=== PATIENT | female | born 1960 | race Caucasian/White ===

== ENCOUNTER 2019-07-12 00:03 | Inpatient (IN) | payer MEDICAID ==
[2019-07-12] MEDS ORDERED: Azithromycin 500 MG VIAL ONE (00:21)
[2019-07-12] MEDS ORDERED: Ondansetron PF 4 MG/2 ML Vial ONE (00:21)
[2019-07-12 00:34] LABS: Hemoglobin 9.7 g/dL (12.0-16.0); Mean Corpuscular HGB CONC 32.5 g/dL (32.0-36.0); Mean Corpuscular Hemoglobin 23.9 pg (27.0-31.0); Mean Corpuscular Volume 73.4 fL (78.0-98.0); Platelet Count 471 thou/uL (130-400); RBC Distribution Width 15.4 % (11.5-14.5); Red Blood Cell (RBC) Count 4.04 mill/uL (4.20-5.40); White Blood Cell (WBC) Count 11.9 thou/uL (4.8-10.8)
[2019-07-12 00:46] LABS: #Lymphocytes 0.3 thou/uL (1.20-3.40); #Monocytes 0.1 thou/uL (0.11-0.59); #Neutrophils 11.4 thou/uL (1.40-6.50); %Basophils 0.3 % (0.0-1.0); %Eosinophils 0.1 % (0.0-10.0); %Lymphocytes 2.8 % (21.0-51.0); %Monocytes 0.4 % (0.0-10.0); %Neutrophils 96.5 % (42.0-75.0); ALT (SGPT) 37 U/L (8-55); AST (SGOT) 16 U/L (5-34); Albumin 3.3 g/dL (3.4-4.8); Alkaline Phosphatase 86 U/L (40-110); Anion Gap 14 mmol/L (10-20); BUN (Urea Nitrogen) 6 mg/dL (9.8-20.1); Bilirubin, Total 0.4 mg/dL (0.2-1.2); Calc. Creatinine Clearance 0 mL/min (70-130); Calcium 8.4 mg/dL (7.8-10.44); Carbon Dioxide 23 mmol/L (23-31); Chloride 99 mmol/L (98-107); Estimated GFR-MDRD 89; Globulin 3.3 g/dL (2.4-3.5); Glucose 182 mg/dL (80-115); MDiff Complete? YES; Microcytosis SLIGHT = 6-15 cells (100X) (0-5/hpf); Platelet Morphology Comment Appears Increased; Potassium 3.8 mmol/L (3.5-5.1); Protein, Total 6.6 g/dL (6.0-8.3); Sodium 132 mmol/L (136-145)
[2019-07-12 01:08] LABS: Base Excess-Venous 0.3 mmol/L (-2.0 to 3.0); Bicarbonate (HCO3v) 25.6 mmol/L (22.0-28.0); CO2 Tension (PvCO2) 43.4 mmHg (40.0-50.0); Calcium, Ionized 1.17 mmol/L (See Comments:); Chloride 99 mmol/L (98-107); Hemoglobin - Calc 10.3 g/dL (12.0-16.0); Potassium 4.2 mmol/L (3.5-5.1); Sodium 134 mmol/L (138-145)
[2019-07-12 01:09] LABS: CKMB 0.5 ng/mL (0-6.6)
[2019-07-12 02:08] LABS: Bilirubin Negative (Negative); Blood, Urine Negative (Negative); Clarity Clear (Clear); Glucose, Urine (Dipstick) Normal (Negative); Leukocyte Negative Leu/uL (Negative); Nitrite Negative (Negative); Protein, Urine (Dipstick) Negative (Neg-Trace); Urobilinogen Normal mg/dL (Less than 2)
[2019-07-12] MEDS ORDERED: Acetaminophen 325 MG TAB PO PRN (03:32)
[2019-07-12] MEDS ORDERED: Bacteriostatic Water 30 ML VIAL FS PRN (03:54)
--- NOTE | 2019-07-12 04:11 | HP ---
CHIEF COMPLAINT: Shortness of breath. HISTORY OF PRESENT ILLNESS: The patient is a very pleasant 59-year-old female, who was recently diagnosed with influenza on 07/05 and was put on azithromycin and Tamiflu, who presents to the hospital with worsening shortness of breath. The patient states that for the past couple of days, she has been very short of breath. Denies any fevers or chills; however, does state that she had has been having a little cough with some sputum production. The patient denies any orthopnea or PND. She denies any lower extremity swelling. The patient is a former smoker, quit date was June 10, 2019. She presented to [facility] today. She underwent a CTA for PE protocol, which was negative for PE; however, she was noted to have walled cavitary mass in the posterior aspect of her left upper chest. PAST MEDICAL HISTORY: The patient has a history of COPD. PAST SURGICAL HISTORY: She has had tubal ligation. SOCIAL HISTORY: She is a former smoker, one pack a day, quit in June. No alcohol use. No drug use. She lives with her family. She is a full code. REVIEW OF SYSTEMS: All negative except for the ones mentioned above in the HPI. ALLERGIES: ALLERGIC TO CODEINE. FAMILY HISTORY: No history of heart disease or strokes. PHYSICAL EXAMINATION: VITAL SIGNS: Temperature of 97.6, respiratory rate 20, 95% on BiPAP, 84 heart rate, blood pressure of 98/69. GENERAL: She is awake, alert, and oriented x3. Does not appear in distress. HEENT: The patient appears cachectic with some temporal wasting. No oral lesions noted. Pupils equal and reactive to light. CV: S1 and S2 present. No murmurs, rubs, or gallops. LUNGS: She has diminished breath sounds all over. No wheezing or rhonchi noted. ABDOMEN: Soft. Bowel sounds are present x2. Mild pain upon palpation all over. EXTREMITIES: No edema. Pedal pulses are present x2. NEUROVASCULAR: No focal deficits noted. SKIN: No cuts, lesions, or bruises noted. LABORATORY RESULTS: As of the following; WBCs of 11.9, hemoglobin of 9.7, hematocrit of 29.7, her platelets of 471. Chemistry; sodium of 134, potassium of 4.2, BUN of 6, creatinine of 0.67. Her troponin was mildly elevated at 0.061. She did have a CTA, which indicated no PE; however, indicated emphysematous changes and there is a persistent abnormal irregular thick walled cavitary mass in the posterior aspect of the left upper lobe, which measures up to 7 cm in size abuts in the hilum. The nonspecific mediastinal lymphadenopathy is also noted. ASSESSMENT AND PLAN: The patient is a very pleasant 59-year-old female, who presents to the hospital with complaints of shortness of breath. 1. Shortness of breath, most likely secondary to possible chronic obstructive pulmonary disease exacerbation. I will start her on some steroids and DuoNeb. pt is on BiPAP. She did have a vbg done, indicated a pH of 7.37 and CO2 of 49. Her BNP was less than 10. She did have an elevated D-dimer. cta negative for PE. However she does have a cavitary mass. Not sure if this is infectious vs malignancy. She is currently on the BiPAP. We will consult Pulmonary and continue to monitor. I will also start her on some broad-spectrum antibiotics. 2. Mild elevated troponins. She did have some mild troponin leak. No significant EKG changes. We will get an echocardiogram. 3. Malnutrition, moderate to severe. The patient states that she has not been really eating very much. She is currently lost some weight. She states that she has some abdominal fullness. Given the fact that she has hilar mass, unclear this is a malignancy versus possible infectious etiology. 4. Deep venous thrombosis prophylaxis. We will put the patient on SCDs. Job ID: [id number] MTDD
[2019-07-12 04:56] LABS: Troponin I 0.032 ng/mL (< 0.028)
[2019-07-12] MEDS ORDERED: FLU VACC QS2019-20(6MOS UP)/PF 60 MCG/0.5 ML SYRINGE IM ONE (05:45)
[2019-07-12] MEDS: Enoxaparin Sodium 40 MG/0.4 ML SYRINGE SC SCH (10:38)
[2019-07-12] MEDS: methylPREDNISolone Sod Succ 40 MG VIAL IVP SCH (10:38)
[2019-07-12] MEDS: Famotidine/PF 20 mg/2ml Vial SLOW IVP SCH ×2 (10:38→20:51)
--- NOTE | 2019-07-12 15:11 | CON ---
DATE OF CONSULTATION: 07/12/2019 SERVICE: Pulmonary Medicine. REASON FOR CONSULTATION: [facility] patient. HISTORY OF PRESENT ILLNESS: The patient is a 59-year-old white female with past medical history significant for COPD. She was in her usual state of health until around [place]. At that point, she ended up coming down with the influenza. She got discharged from the emergency department on a course of azithromycin and Tamiflu. That being said, over the following 5 days, she had increasing difficulty with breathing and subsequently returned to the emergency department. She has continued to have some headache on and off, but her fever profile has improved, and her myalgia has improved. That being said, her shortness of breath and cough have gotten worse since she started producing some pink-tinged sputum. She denies any fevers or chills. There were no significant overnight events. In the emergency department, she was put on steroids, antibiotics, and nebulized medications. She was tucked in the [facility] and transiently needs a little bit of BiPAP, which was immediately interrupted as soon as she arrived in the [facility]. Overnight, she says that she has done quite well and she feels better today than she did on presentation. PAST MEDICAL HISTORY: COPD. PAST SURGICAL HISTORY: Tubal ligation. SOCIAL HISTORY: Negative for alcohol or illicit drug use. She quit smoking about a month ago. Prior to that, she had a greater than 50 pack-year history of smoking. FAMILY HISTORY: Noncontributory. ALLERGIES: CODEINE. MEDICATIONS: List of her inpatient medications was reviewed. No specific updates were made. REVIEW OF SYSTEMS: General; head, ears, eyes, nose, throat; cardiovascular; respiratory; GI; ; musculoskeletal; neurologic; and skin are negative except as mentioned in the HPI. PHYSICAL EXAMINATION: VITAL SIGNS: Afebrile. Pulse 87, blood pressure 148/84, respirations 24, saturation 92%, currently on 2 L nasal cannula. GENERAL: The patient is awake and alert, in no apparent distress. LUNGS: Decent air entry. Extensive rhonchi and wheezing are present. No crackles. There is a prolonged expiratory phase. HEART: Tachycardic. Regular. ABDOMEN: Soft, nontender, and nondistended. Bowel sounds are positive. MUSCULOSKELETAL: No cyanosis or clubbing. No pitting in the bilateral lower extremities. NEUROLOGIC: Grossly nonfocal. LABORATORY DATA: WBC 11.9, hemoglobin 9.7, platelets 471,000. PH 7.37, pCO2 of 44, pO2 of 60. Basic metabolic profile is unremarkable. Liver function studies are unremarkable. Troponin is downtrending to 0.05. Ionized calcium falls within the normal limits. Urinalysis is unremarkable. IMAGING DATA: 1. Echocardiogram demonstrates a normal ejection fraction and a normal size left atrium. Mildly dilated inferior vena cava is present. 2. CTA of the chest, which was performed at an outside facility showed emphysematous changes, and a persistent abnormal irregular thick-wall cavity mass in the posterior aspect of the left upper lobe measuring 7 cm in size and abutting the hilum. Mediastinal lymphadenopathy is also noted. ASSESSMENT: 1. Chronic obstructive pulmonary disease with acute exacerbation. 2. [id number] myocardial infarction, likely secondary to demand. 3. Recent influenza. 4. Pulmonary cavity. 5. Mediastinal lymphadenopathy. DISCUSSION AND PLAN: The patient can be transitioned to the floor. She will continue our supportive care including antibiotics, nebulized medications, and steroids. I will track down the actual CT scan, so that I can review on my own. If significantly abnormal, additional diagnostic procedures will be considered shortly. 70 minutes have been devoted to this patient in various activities. I personally reviewed all imaging studies and laboratory data noted within this document. For fifty percent of this time, I was interacting with the patient at the bedside or coordinating care with the care team. For the remainder of the time I was immediately available to the patient in the hospital unit. Job ID: [id number] MTDD
[2019-07-13 04:57] LABS: #Lymphocytes 1.3 thou/uL (1.20-3.40); #Monocytes 0.8 thou/uL (0.11-0.59); #Neutrophils 8.8 thou/uL (1.40-6.50); %Basophils 0.1 % (0.0-1.0); %Eosinophils 0.2 % (0.0-10.0); %Lymphocytes 11.9 % (21.0-51.0); %Monocytes 7.5 % (0.0-10.0); %Neutrophils 80.4 % (42.0-75.0); Hemoglobin 8.6 g/dL (12.0-16.0); Mean Corpuscular HGB CONC 31.9 g/dL (32.0-36.0); Mean Corpuscular Hemoglobin 23.8 pg (27.0-31.0); Mean Corpuscular Volume 74.7 fL (78.0-98.0); Mean Platelet Volume 7.3 fL (7.4-10.4); Platelet Count 424 thou/uL (130-400); RBC Distribution Width 15.6 % (11.5-14.5); Red Blood Cell (RBC) Count 3.59 mill/uL (4.20-5.40)
[2019-07-13 05:15] LABS: Anion Gap 12 mmol/L (10-20); BUN (Urea Nitrogen) 11 mg/dL (9.8-20.1); Calc. Creatinine Clearance 53 mL/min (70-130); Calcium 8.8 mg/dL (7.8-10.44); Carbon Dioxide 27 mmol/L (23-31); Chloride 102 mmol/L (98-107); Estimated GFR-MDRD Greater than 90; Glucose 108 mg/dL (80-115); Sodium 137 mmol/L (136-145)
[2019-07-13] MEDS: Famotidine/PF 20 mg/2ml Vial SLOW IVP SCH ×2 (10:40→20:25)
[2019-07-13] MEDS: Enoxaparin Sodium 40 MG/0.4 ML SYRINGE SC SCH (10:40)
[2019-07-13] MEDS: methylPREDNISolone Sod Succ 40 MG VIAL IVP SCH (10:41)
--- NOTE | 2019-07-13 14:41 | PDOC.HOSPP ---
- Subjective Subjective: Seen and examined. Clinically improved. Breathing more comfortably. Patient will get coughing and have some chest discomfort with coughing. Denies palpitations. Discussed all current medical conditions. Time was given for questions, questions were asked, all answered in detail. Patient happy with plan of care. - Objective Vital Signs & Weight: Vital Signs (12 hours) Temp Pulse Resp BP Pulse Ox 07/13/19 14:15 92 L 07/13/19 13:52 80 18 95 07/13/19 13:20 98.0 F 92 17 114/67 92 L 07/13/19 10:36 79 16 96 07/13/19 08:00 98.0 F 22 H 94 L 07/13/19 07:51 97 07/13/19 07:17 75 16 97 07/13/19 04:24 98.3 F Weight Admit Weight 72 lb 9.6 oz Weight 73 lb 8 oz Most Recent Monitor Data Heart Rate from ECG 72 NIBP 93/61 NIBP BP-Mean 71 Respiration from ECG 17 SpO2 96 I&O: 07/12/19 07/13/19 07/14/19 06:59 06:59 06:59 Intake Total 80 1342 240 Output Total 100 1475 Balance -20 -133 240 Result Diagrams: 07/13/19 04:22 07/13/19 04:22 Radiology Reviewed by me: Yes Hospitalist ROS - Review of Systems All other systems reviewed; all pertinent +/- noted in HPI/Subj - Medication Medications: Active Medications Generic Name Dose Route Start Last Admin Trade Name Freq PRN Reason Stop Dose Admin Albuterol/Ipratropium 3 ml 07/12/19 07:00 07/13/19 13:52 Duoneb NEB 3 ml [id number] RIMA Administration Enoxaparin Sodium 40 mg 07/12/19 09:00 07/13/19 10:40 Lovenox SC 40 mg 0900 RIMA Administration Famotidine 20 mg 07/12/19 09:00 07/13/19 10:40 Pepcid SLOW IVP 20 mg Q12HR RIMA Administration Doxycycline Hyclate 100 mg/ 100 mls @ 100 mls/hr 07/12/19 09:00 07/13/19 10: 40 Sodium Chloride IVPB 100 mls Q12HR RIMA Administration Methylprednisolone Sodium Succinate 40 mg 07/12/19 09:00 07/13/19 10:41 Solu-Medrol IVP 40 mg DAILY RIMA Administration - Exam General Appearance: NAD, awake alert Eye: PERRL, anicteric sclera ENT: normocephalic atraumatic, moist mucosa Neck: supple, symmetric, no lymphadenopathy Heart: RRR, no murmur, no gallops, no rubs Respiratory: no rales, no tachypnea, rhonchi, wheezes Gastrointestinal: soft, non-tender, no guarding, no rigidity Extremities: no clubbing, no edema Skin: no lesions, no rashes Neurological: cranial nerve grossly intact, no focal deficits Musculoskeletal: no muscle wasting Psychiatric: normal affect, normal behavior, A&O x 3 Hosp A/P (1) COPD exacerbation Code(s): J44.1 - CHRONIC OBSTRUCTIVE PULMONARY DISEASE W (ACUTE) EXACERBATION Status: Acute (2) Acute respiratory failure Code(s): J96.00 - ACUTE RESPIRATORY FAILURE, UNSP W HYPOXIA OR HYPERCAPNIA Status: Acute (3) Cough Code(s): R05 - COUGH Status: Acute (4) Pleuritic chest pain Code(s): R07.81 - PLEURODYNIA Status: Acute (5) Pulmonary lesion Code(s): J98.4 - OTHER DISORDERS OF LUNG Status: Acute (6) Severe protein-calorie malnutrition Code(s): E43 - UNSPECIFIED SEVERE PROTEIN-CALORIE MALNUTRITION Status: Acute - Plan Plan: intermediate medical care floor, stable for downgrade to medical unit pulmonology consultation, recommendations appreciated pulmonary specific antibiotics steroids supplemental oxygen as needed to maintain O2 saturation greater than 88% breathing treatments pulmonary lesion, may require surveillance in the outpatient setting in the upcoming months Recent Flu, completed full course of antiviral therapy now with secondary COPD exacerbation smoking cessation recently Continue home medications as able Blood pressure control blood sugar control G.I. prophylaxis
[2019-07-14] MEDS: Enoxaparin Sodium 40 MG/0.4 ML SYRINGE SC SCH (07:35)
[2019-07-14] MEDS: methylPREDNISolone Sod Succ 40 MG VIAL IVP SCH (07:36)
[2019-07-14] MEDS: Famotidine/PF 20 mg/2ml Vial SLOW IVP SCH ×2 (07:36→21:04)
--- NOTE | 2019-07-14 13:48 | CON ---
DATE OF CONSULTATION: 07/14/2019 REASON FOR CONSULTATION: Probable bronchogenic carcinoma. HISTORY OF PRESENT ILLNESS: The patient is a 59-year-old woman, who has had a many month history of weight loss and symptoms consistent with COPD. She has a heavy smoking history, but discontinued tobacco within the past month. In early June, she presented to the [facility] Emergency Room in [place] and was treated for flu with a course of azithromycin and Tamiflu. There was some initial improvement, but cough and low-grade fever with shortness of breath recurred. She has not had overt hemoptysis, but does describe pink-tinged sputum. She returned to the [facility] in [place] emergency room and a CT scan of the chest reportedly showed a 7 cm cavitary mass in the left upper lobe. There was associated mediastinal adenopathy. The CT angiogram portion of the study was negative for pulmonary emboli. She was transferred to our facility for further evaluation and has been seen by Pulmonology, who is attempting to obtain the actual images for review. Because of the concern for bronchogenic carcinoma, I am asked to see the patient and provide my recommendations. ALLERGIES: SHE DESCRIBES SENSITIVITY TO CODEINE. MEDICATIONS: 1. DuoNeb. 2. Tylenol. 3. Lovenox. 4. Pepcid. 5. Solu-Medrol. PAST MEDICAL HISTORY: Medical illness, COPD. She did have an episode of atypical chest pain in 2016 and underwent a cardiac catheterization at [facility], which was reportedly negative. PAST SURGICAL HISTORY: Surgery, the patient has had a tubal ligation as her only surgery. SOCIAL HISTORY: The patient does not use alcohol or illicit drugs. She has a greater than 50 pack-year history of smoking, but discontinued tobacco about one month ago. FAMILY HISTORY: There is no history of lung cancer. REVIEW OF SYSTEMS: The patient has had a poor appetite and weight loss as noted in the HPI. She has no symptoms to suggest distant metastatic disease otherwise. She denies significant cardiopulmonary, GI, , musculoskeletal, or neurological complaints. PHYSICAL EXAMINATION: VITAL SIGNS: Temperature 98.2, pulse 70 and regular, respirations 20, and blood pressure 121/80. GENERAL: The patient is slender and chronically ill-appearing woman, in no acute distress. She is sitting up and eating. She is alert, oriented, and cooperative. HEENT: The extraocular movements are intact. The pupils are equal, round, and react to light. NECK: Supple. LUNGS: Clear. CARDIOVASCULAR: Regular rate and rhythm without murmur or gallop or click. ABDOMEN: No tenderness, organomegaly, masses, bruits, or ascites. EXTREMITIES: No clubbing, cyanosis, or edema. SKIN: Normal. LYMPH: No adenopathy. MUSCULOSKELETAL: No active arthritis. NEUROLOGIC: No focal findings and the cranial nerves 2 through 12, grossly intact. LABORATORY DATA: White blood cell count 11.0, hemoglobin 8.6, MCV 74.7, RDW 15.6%, and platelet count 424,000. Chemistries show sodium 132, with otherwise normal electrolytes. Creatinine is 0.67. The albumin is 3.3. Liver function studies are normal. IMAGING: See history of present illness. IMPRESSION: Large left upper lobe cavitary mass consistent with bronchogenic carcinoma. RECOMMENDATIONS: The Pulmonary consultation was reviewed and I do agree with Dr. Clements that review of the actual CT images is appropriate. If the large left upper lobe centrally located mass is confirmed, then a diagnostic procedure would be warranted, likely a fiberoptic bronchoscopy. I will be available as needed. If she is discharged, I can follow up in the office when a tissue diagnosis is available. Finally, the anemia and microcytosis may be secondary to chronic disease. However, iron studies will be obtained to eliminate the possibility of iron deficiency anemia. Thanks very much for allowing me to provide my recommendations. Job ID: [id number]
[2019-07-14 14:00] LABS: Iron 27 ug/dL (50-170); Iron Binding Capacity, Total 320 mcg/dL (265-497)
--- NOTE | 2019-07-14 14:11 | PDOC.HOSPP ---
- Subjective Subjective: Seen and examined. Patient clinically improving. Patient breathing much more comfortable. Patient saturating on low-flow nasal cannula and even room air at times. Recommended patient have increased oral intake for severe protein calorie malnutrition. Oncology input requested, recommendations appreciated. - Objective Vital Signs & Weight: Vital Signs (12 hours) Temp Pulse Resp BP Pulse Ox 07/14/19 10:11 78 16 07/14/19 08:00 96 07/14/19 07:45 98.2 F 78 20 121/80 96 07/14/19 06:52 96 07/14/19 06:51 96 16 07/14/19 04:00 98 F 89 18 120/72 96 Weight Admit Weight 72 lb 9.6 oz Weight 79 lb 9 oz Most Recent Monitor Data Heart Rate from ECG 72 NIBP 93/61 NIBP BP-Mean 71 Respiration from ECG 17 SpO2 96 I&O: 07/13/19 07/14/19 07/15/19 06:59 06:59 06:59 Intake Total 1342 1070 600 Output Total 1475 Balance -133 1070 600 Result Diagrams: 07/13/19 04:22 07/13/19 04:22 Radiology Reviewed by me: Yes Hospitalist ROS - Review of Systems All other systems reviewed; all pertinent +/- noted in HPI/Subj - Medication Medications: Active Medications Generic Name Dose Route Start Last Admin Trade Name Freq PRN Reason Stop Dose Admin Albuterol/Ipratropium 3 ml 07/12/19 07:00 07/14/19 10:11 Duoneb NEB 3 ml [id number] RIMA Administration Enoxaparin Sodium 40 mg 07/12/19 09:00 07/14/19 07:35 Lovenox SC 40 mg 0900 RIMA Administration Famotidine 20 mg 07/12/19 09:00 07/14/19 07:36 Pepcid SLOW IVP 20 mg Q12HR RIMA Administration Doxycycline Hyclate 100 mg/ 100 mls @ 100 mls/hr 07/12/19 09:00 07/14/19 07: 34 Sodium Chloride IVPB 100 mls Q12HR RIMA Administration Methylprednisolone Sodium Succinate 40 mg 07/12/19 09:00 07/14/19 07:36 Solu-Medrol IVP 40 mg DAILY RIMA Administration - Exam General Appearance: NAD Eye: PERRL, anicteric sclera ENT: normocephalic atraumatic, moist mucosa Neck: supple, symmetric, no lymphadenopathy Heart: no murmur, no gallops, no rubs Respiratory: no rales, normal chest expansion, no tachypnea, rhonchi, wheezes Gastrointestinal: soft, non-tender, no palpable masses, no guarding, no rigidity Extremities: no edema Skin: no lesions, no rashes Neurological: cranial nerve grossly intact, no focal deficits Musculoskeletal: generalized weakness Psychiatric: normal affect, normal behavior, A&O x 3 Hosp A/P (1) COPD exacerbation Code(s): J44.1 - CHRONIC OBSTRUCTIVE PULMONARY DISEASE W (ACUTE) EXACERBATION Status: Acute (2) Acute respiratory failure Code(s): J96.00 - ACUTE RESPIRATORY FAILURE, UNSP W HYPOXIA OR HYPERCAPNIA Status: Acute (3) Cough Code(s): R05 - COUGH Status: Acute (4) Pleuritic chest pain Code(s): R07.81 - PLEURODYNIA Status: Acute (5) Pulmonary lesion Code(s): J98.4 - OTHER DISORDERS OF LUNG Status: Acute (6) Severe protein-calorie malnutrition Code(s): E43 - UNSPECIFIED SEVERE PROTEIN-CALORIE MALNUTRITION Status: Acute (7) NSTEMI, initial episode of care Code(s): I21.4 - NON-ST ELEVATION (NSTEMI) MYOCARDIAL INFARCTION Status: Acute - Plan Plan: medical unit pulmonology consultation, recommendations appreciated Oncology consultation, recommendations appreciated pulmonary specific antibiotics steroids supplemental oxygen as needed to maintain O2 saturation greater than 88% breathing treatments pulmonary lesion, tissue sample would be needed for definitive diagnosis and treatment Iron studies to eval for anemia of chronic disease vs Iron deficiency Protein supplementation TID after meals Severe protein calorie malnutrition diagnosed on admission Type 2 NSTEMI diagnosed on admission Recent Flu, completed full course of antiviral therapy now with secondary COPD exacerbation smoking cessation recently Continue home medications as able Blood pressure control blood sugar control G.I. prophylaxis
--- NOTE | 2019-07-14 19:58 | PRG ---
DATE OF SERVICE: 07/14/2019 SERVICE: Pulmonary Medicine. INTERVAL HISTORY: The patient is doing great from respiratory standpoint. Breathing comfortably. No complaints of chest discomfort, nausea, or vomiting. Her breathing is improved dramatically. Otherwise, there has been no interval change to her condition. PHYSICAL EXAMINATION: VITAL SIGNS: Afebrile, pulse 78, blood pressure 121/80, respirations 20, and saturation 96% on room air. GENERAL: The patient is awake and alert, in no apparent distress. LUNGS: Wonderful air entry with no prolonged expiratory phase or wheezing present. HEART: Normal rate, regular. ABDOMEN: Soft, nontender, nondistended. Bowel sounds are positive. MUSCULOSKELETAL: No cyanosis or clubbing. No pitting in the bilateral lower extremities. NEUROLOGICAL: Grossly nonfocal. LABORATORY DATA: WBC 11.0, hemoglobin 8.6, platelets 424,000. Basic metabolic profile is unremarkable. Iron 27, TIBC is normal, percent saturation is extremely low with a low ferritin. Blood cultures x2 are unremarkable. Urine culture is negative. ASSESSMENT: 1. Chronic obstructive pulmonary disease with acute exacerbation. 2. [id number]-CW-[id number] myocardial infarction secondary to demand. 3. Recent influenza. 4. Pulmonary cavity in the apical posterior segment of the left upper lobe. 5. Mediastinal lymphadenopathy. DISCUSSION AND PLAN: The patient is doing fine from respiratory standpoint. At this point, she is essentially stable. As such, I think it would be reasonable to proceed with a bronchoscopy. Unfortunately, because of scheduling issues in the operating room, and a prior obligation I have in the afternoon, I will not be able to do her case until Monday at the earliest. We will plan on doing a endoscopic bronchial ultrasound-guided FNA of the lymph node as well as a sampling of the cavitary lesion in the left upper lobe. In this instance, cancer is a diagnosis of exclusion. Job ID: [id number] [facility]
[2019-07-15 05:25] LABS: Cardiac Risk 2.3 (Less than 4.5)
[2019-07-15] MEDS: Ferrous Sulfate 325 MG TAB PO SCH ×2 (08:37→17:11)
[2019-07-15] MEDS: Aspirin 81 mg Enteric Coated Tablet PO SCH (08:38)
[2019-07-15] MEDS: Famotidine/PF 20 mg/2ml Vial SLOW IVP SCH ×2 (08:45→21:09)
[2019-07-15] MEDS: methylPREDNISolone Sod Succ 40 MG VIAL IVP SCH (08:50)
[2019-07-15] MEDS: Enoxaparin Sodium 40 MG/0.4 ML SYRINGE SC SCH (08:51)
--- NOTE | 2019-07-15 12:04 | PRG ---
DATE OF SERVICE: 07/15/2019 SERVICE: Pulmonary Medicine. INTERVAL HISTORY: The patient is doing fine from respiratory standpoint. She is on room air. She has been walking in the hallways. There has been no interval change to her condition, otherwise. PHYSICAL EXAMINATION: VITAL SIGNS: Afebrile, pulse 92, blood pressure 110/69, respirations 20, and saturation 100% on room air. GENERAL: The patient is awake and alert, in no apparent distress. LUNGS: Decent air entry. Prolonged expiratory phase. Rhonchi is present, more so on the left. HEART: Normal rate, regular. ABDOMEN: Soft, nontender, and nondistended. Bowel sounds are positive. MUSCULOSKELETAL: No cyanosis or clubbing. No pitting in bilateral lower extremities. NEUROLOGIC: Grossly nonfocal. ASSESSMENT: 1. Chronic obstructive pulmonary disease with acute exacerbation. 2. Large pulmonary cavity in the left upper lobe. 3. Recent influenza. 4. Mediastinal lymphadenopathy. DISCUSSION AND PLAN: We will take her down to the operating room in the next 24 to 48 hours, to perform an EBUS, and conventional bronchoscopy. Pulmonary will follow for the time being. The diagnosis of exclusion here is cancer, however. Job ID: [id number]
[2019-07-15 12:15] VITALS: BMI 16.0
[2019-07-15] MEDS: Sodium Chloride 0.9% 1,000 ML IV SCH (12:38)
--- NOTE | 2019-07-15 14:33 | PDOC.HOSPP ---
- Subjective Subjective: Seen and examined. Patient is doing much better since admission. Breathing comfortably on room air. Still with cough and productive sputum that is a pink tinge to it. Denies fever chills. Ambulating the halls without difficulty. Time was given for questions, all questions answered in detail. Patient happy with plan of care. - Objective Vital Signs & Weight: Vital Signs (12 hours) Temp Pulse Resp BP Pulse Ox 07/15/19 14:22 89 18 96 07/15/19 10:41 101 H 16 97 07/15/19 08:00 98 07/15/19 07:48 98.1 F 92 20 110/69 100 07/15/19 07:36 85 18 95 Weight Admit Weight 72 lb 9.6 oz Weight 79 lb 9 oz Most Recent Monitor Data Heart Rate from ECG 72 NIBP 93/61 NIBP BP-Mean 71 Respiration from ECG 17 SpO2 96 I&O: 07/14/19 07/15/19 07/16/19 06:59 06:59 06:59 Intake Total 1070 840 Balance 1070 840 Result Diagrams: 07/13/19 04:22 07/13/19 04:22 Radiology Reviewed by me: Yes Hospitalist ROS - Review of Systems All other systems reviewed; all pertinent +/- noted in HPI/Subj - Medication Medications: Active Medications Generic Name Dose Route Start Last Admin Trade Name Freq PRN Reason Stop Dose Admin Albuterol/Ipratropium 3 ml 07/12/19 07:00 07/15/19 14:22 Duoneb NEB 3 ml [id number] RIMA Administration Aspirin 81 mg 07/15/19 09:00 07/15/19 08:38 Ecotrin PO 81 mg DAILY RIMA Administration Enoxaparin Sodium 40 mg 07/12/19 09:00 07/15/19 08:51 Lovenox SC Not Given 0900 RIMA Famotidine 20 mg 07/12/19 09:00 07/15/19 08:45 Pepcid SLOW IVP 20 mg Q12HR RIMA Administration Ferrous Sulfate 325 mg 07/15/19 08:00 07/15/19 08:37 Feosol PO 325 mg BID-WM RIMA Administration Doxycycline Hyclate 100 mg/ 100 mls @ 100 mls/hr 07/12/19 09:00 07/15/19 08: 38 Sodium Chloride IVPB 100 mls Q12HR RIMA Administration Sodium Chloride 1,000 mls @ 50 mls/hr 07/15/19 12:00 07/15/19 12:38 Normal Saline 0.9% IV 1,000 mls .Q20H RIMA Administration Methylprednisolone Sodium Succinate 40 mg 07/12/19 09:00 07/15/19 08:50 Solu-Medrol IVP 40 mg DAILY RIMA Administration - Exam General Appearance: NAD, awake alert Eye: PERRL ENT: normocephalic atraumatic, moist mucosa Neck: supple, symmetric, no lymphadenopathy Heart: no murmur, no gallops, no rubs Respiratory: no rales, normal chest expansion, no tachypnea, rhonchi, wheezes ( improving) Gastrointestinal: soft, non-tender, non-distended, no guarding, no rigidity Extremities: no clubbing, no edema Skin: no lesions, no rashes Neurological: cranial nerve grossly intact, no focal deficits Musculoskeletal: generalized weakness Psychiatric: normal affect, normal behavior, A&O x 3 Hosp A/P (1) COPD exacerbation Code(s): J44.1 - CHRONIC OBSTRUCTIVE PULMONARY DISEASE W (ACUTE) EXACERBATION Status: Acute (2) Acute respiratory failure Code(s): J96.00 - ACUTE RESPIRATORY FAILURE, UNSP W HYPOXIA OR HYPERCAPNIA Status: Acute (3) Cough Code(s): R05 - COUGH Status: Acute (4) Pleuritic chest pain Code(s): R07.81 - PLEURODYNIA Status: Acute (5) Pulmonary lesion Code(s): J98.4 - OTHER DISORDERS OF LUNG Status: Acute (6) Severe protein-calorie malnutrition Code(s): E43 - UNSPECIFIED SEVERE PROTEIN-CALORIE MALNUTRITION Status: Acute (7) NSTEMI, initial episode of care Code(s): I21.4 - NON-ST ELEVATION (NSTEMI) MYOCARDIAL INFARCTION Status: Acute - Plan Plan: Medical unit Pulmonology consultation, recommendations appreciated Oncology consultation, recommendations appreciated pulmonary specific antibiotics steroids No longer needing supplemental oxygen to maintain O2 saturation greater than 88% breathing treatments pulmonary lesion, tissue sample would be needed for definitive diagnosis and treatment Iron studies to eval for anemia of chronic disease vs Iron deficiency Protein supplementation TID after meals Severe protein calorie malnutrition diagnosed on admission Type 2 NSTEMI diagnosed on admission ASA 81mg started Statin Recent Flu, completed full course of antiviral therapy now with secondary COPD exacerbation smoking cessation recently Continue home medications as able Blood pressure control blood sugar control G.I. prophylaxis
--- NOTE | 2019-07-15 15:53 | PDOC.MOPN ---
Interval History: feels better, denies SOB. - Vital Signs Vital Signs: Vital Signs (12 hours) Temp Pulse Resp BP Pulse Ox 07/15/19 14:22 89 18 96 07/15/19 10:41 101 H 16 97 07/15/19 08:00 98 07/15/19 07:48 98.1 F 92 20 110/69 100 07/15/19 07:36 85 18 95 Weight Admit Weight 72 lb 9.6 oz Weight 79 lb 9 oz Most Recent Monitor Data Heart Rate from ECG 72 NIBP 93/61 NIBP BP-Mean 71 Respiration from ECG 17 SpO2 96 - Physical Exam General: Alert, Oriented x3, No acute distress HEENT: Atraumatic, PERRLA, EOMI, Mucous membr. moist/pink Lungs: Other Cardiovascular: Regular rate Abdomen: Normal bowel sounds Extremities: No clubbing, No cyanosis, No edema, Normal pulses, No tenderness/ swelling Skin: No rashes, No breakdown, No significant lesion Neurological: Normal speech - Labs Result Diagrams: 07/13/19 04:22 07/13/19 04:22 Lab results: Laboratory Results - last 24 hr 07/15/19 04:43: Triglycerides 55, Cholesterol 145, LDL Cholesterol, Calc 70, HDL Cholesterol 64, Heart Disease Risk Ratio 2.3 Status: lab reviewed by me A/P - Problem (1) Pulmonary lesion Current Visit: Yes Code(s): J98.4 - OTHER DISORDERS OF LUNG Status: Acute - Plan Plan: Bronch planned tomorrow continue oral iron Further recs after diagnosis. likely need further imaging, can be done outpatient.
[2019-07-16 06:05] LABS: Cardiac Risk 2.1 (Less than 4.5)
[2019-07-16] MEDS: Sodium Chloride 0.9% 1,000 ML IV SCH (08:29)
[2019-07-16] MEDS: Ferrous Sulfate 325 MG TAB PO SCH ×2 (08:29→17:24)
[2019-07-16] MEDS: Aspirin 81 mg Enteric Coated Tablet PO SCH (08:30)
[2019-07-16] MEDS: Famotidine/PF 20 mg/2ml Vial SLOW IVP SCH ×2 (08:30→20:22)
[2019-07-16] MEDS: methylPREDNISolone Sod Succ 40 MG VIAL IVP SCH (08:32)
[2019-07-16] MEDS: Enoxaparin Sodium 40 MG/0.4 ML SYRINGE SC SCH (08:35)
[2019-07-16] MEDS ORDERED: Dexamethasone 20 MG/5 ML VIAL ONE (09:47)
[2019-07-16] MEDS ORDERED: PHENYLEPHRINE-NS 100 MCG/ML 10 ML SYRINGE ONE (09:47)
[2019-07-16] MEDS ORDERED: Ondansetron PF 4 MG/2 ML Vial ONE (09:47)
[2019-07-16] MEDS ORDERED: diphenhydrAMINE 50 MG/ML VIAL ONE (09:47)
[2019-07-16] MEDS ORDERED: PROPOFOL 200 MG/20 ML VIAL ONE (09:47)
[2019-07-16] MEDS ORDERED: Rocuronium Bromide 10 MG/ML (10ML VIAL) ONE (09:47)
[2019-07-16] MEDS ORDERED: Fentanyl 100 MCG/2 ML VIAL ONE (09:48)
[2019-07-16] MEDS ORDERED: SUGAMMADEX SODIUM 500 MG/5 ML VIAL ONE (10:02)
[2019-07-16] MEDS ORDERED: Ondansetron HCl/PF 4 MG/2 ML Vial IVP PRN (11:24)
[2019-07-16 11:46] LABS: BF Color Red; Body Fluid Source Bronchial Washings; Clarity Hazy (Clear); Tube # EDTA
[2019-07-16 12:12] LABS: BF RBC Count - Manual 19800 /cumm
[2019-07-16 12:36] LABS: BF WBC/Nonhematics Ct. - Manua 60 /cumm
--- NOTE | 2019-07-16 12:53 | PDOC.HOSPP ---
- Subjective Subjective: Patient undergoing bronchoscopy for tissue sample confirmation of lung lesion. Patient may require further chemotherapy, radiation, versus surgery pending oncology's recommendations. Otherwise medically progressing as expected. Tolerating room air. - Objective Vital Signs & Weight: Vital Signs (12 hours) Temp Pulse Resp BP Pulse Ox 07/16/19 12:10 93 L 07/16/19 08:14 98.1 F 86 20 103/66 100 07/16/19 08:00 100 07/16/19 07:59 92 16 97 Weight Admit Weight 72 lb 9.6 oz Weight 79 lb 9 oz Most Recent Monitor Data Heart Rate from ECG 72 NIBP 93/61 NIBP BP-Mean 71 Respiration from ECG 17 SpO2 96 I&O: 07/15/19 07/16/19 07/17/19 06:59 06:59 06:59 Intake Total 840 Balance 840 Result Diagrams: 07/13/19 04:22 07/13/19 04:22 Radiology Reviewed by me: Yes Hospitalist ROS - Review of Systems All other systems reviewed; all pertinent +/- noted in HPI/Subj - Medication Medications: Active Medications Generic Name Dose Route Start Last Admin Trade Name Freq PRN Reason Stop Dose Admin Albuterol/Ipratropium 3 ml 07/12/19 07:00 07/16/19 10:55 Duoneb NEB Not Given [id number] [facility] Aspirin 81 mg 07/15/19 09:00 07/16/19 08:30 Ecotrin PO Not Given DAILY [facility] Enoxaparin Sodium 40 mg 07/12/19 09:00 07/16/19 08:35 Lovenox SC Not Given 09 [facility] Famotidine 20 mg 07/12/19 09:00 07/16/19 08:30 Pepcid SLOW IVP 20 mg Q12HR RIMA Administration Ferrous Sulfate 325 mg 07/15/19 08:00 07/16/19 08:29 Feosol PO Not Given BID-[facility] Doxycycline Hyclate 100 mg/ 100 mls @ 100 mls/hr 07/12/19 09:00 07/16/19 08: 30 Sodium Chloride IVPB 100 mls Q12HR RIMA Administration Sodium Chloride 1,000 mls @ 50 mls/hr 07/15/19 12:00 07/16/19 08:29 Normal Saline 0.9% IV Not Given .Q20H RIMA Methylprednisolone Sodium Succinate 40 mg 07/12/19 09:00 07/16/19 08:32 Solu-Medrol IVP 40 mg DAILY RIMA Administration - Exam General Appearance: NAD, awake alert Eye: PERRL ENT: normocephalic atraumatic, moist mucosa Neck: supple, symmetric, no lymphadenopathy Heart: RRR, no murmur, no gallops, no rubs Respiratory: no rales, normal chest expansion, no tachypnea, rhonchi, wheezes ( improving) Gastrointestinal: soft, non-tender, no guarding, no rigidity Extremities: no edema Skin: no lesions, no rashes Neurological: cranial nerve grossly intact, no focal deficits Musculoskeletal: diffuse muscle atrophy Musculoskeletal - other findings: Very thin, protein calorie malnutrition Psychiatric: normal affect, normal behavior, A&O x 3 Hosp A/P (1) COPD exacerbation Code(s): J44.1 - CHRONIC OBSTRUCTIVE PULMONARY DISEASE W (ACUTE) EXACERBATION Status: Acute (2) Acute respiratory failure Code(s): J96.00 - ACUTE RESPIRATORY FAILURE, UNSP W HYPOXIA OR HYPERCAPNIA Status: Acute (3) Cough Code(s): R05 - COUGH Status: Acute (4) Pleuritic chest pain Code(s): R07.81 - PLEURODYNIA Status: Acute (5) Pulmonary lesion Code(s): J98.4 - OTHER DISORDERS OF LUNG Status: Acute (6) Severe protein-calorie malnutrition Code(s): E43 - UNSPECIFIED SEVERE PROTEIN-CALORIE MALNUTRITION Status: Acute (7) NSTEMI, initial episode of care Code(s): I21.4 - NON-ST ELEVATION (NSTEMI) MYOCARDIAL INFARCTION Status: Acute - Plan Plan: Medical unit Pulmonology consultation, recommendations appreciated Oncology consultation, recommendations appreciated Bronchoscopy on 07/16/2019 - Pathology pending pulmonary lesion, tissue sample would be needed for definitive diagnosis and treatment pulmonary specific antibiotics steroids No longer needing supplemental oxygen to maintain O2 saturation greater than 88% breathing treatments Iron studies to eval for anemia of chronic disease vs Iron deficiency Protein supplementation TID after meals Severe protein calorie malnutrition diagnosed on admission Type 2 NSTEMI diagnosed on admission ASA 81mg started Statin Recent Flu, completed full course of antiviral therapy now with secondary COPD exacerbation smoking cessation recently Continue home medications as able Blood pressure control blood sugar control G.I. prophylaxis
[2019-07-16 12:54] LABS: BF Segmented Neutrophils 7 %; Cell Count Non Hematic 89 %; Lymphocytes 4 %
--- NOTE | 2019-07-16 16:01 | PRG ---
DATE OF SERVICE: 07/16/2019 SERVICE: Pulmonary Medicine. INTERVAL HISTORY: The patient is doing fine from respiratory standpoint. She finally feels like she has turned the corner. She denies any fevers or chills. She is coughing, but not bringing up any phlegm. PHYSICAL EXAMINATION: VITAL SIGNS: Afebrile, pulse 86, blood pressure 103/66, respirations 20, and saturations 100% on room air. GENERAL: The patient is awake and alert, in no apparent distress. LUNGS: Decent air entry. Rhonchi are present. There is a prolonged expiratory phase, but no wheezing appreciated. HEART: Normal rate, regular. ABDOMEN: Soft, nontender, nondistended. Bowel sounds are positive. MUSCULOSKELETAL: No cyanosis or clubbing. No pitting in the bilateral lower extremities. NEUROLOGIC: Grossly nonfocal. LABORATORY DATA: WBC 11.0, hemoglobin 8.6 and gently downtrending, platelets 424,000. Respiratory culture, urine culture, blood culture x2 are unremarkable. AFB smear is negative. ASSESSMENT: 1. Chronic obstructive pulmonary disease with acute exacerbation. 2. Pulmonary cavity in the left upper lobe. 3. Recent influenza. 4. Mediastinal lymphadenopathy. DISCUSSION AND PLAN: We will proceed with an endoscopic bronchial ultrasound-guided fine-needle aspiration of the level 4 lymph node anterior to the trachea just above the angélica, and brush/wash/biopsy of the left upper lobe pulmonary cavity. From a purely respiratory perspective, after the sample is collected, she will be ready for discharge from the hospital provided she has appropriate followup. Pulmonary will continue to follow while she remains in-house. Job ID: [id number]
--- NOTE | 2019-07-16 18:13 | OP ---
DATE OF PROCEDURE: 07/16/2019 SERVICE: Pulmonary Medicine. PROCEDURES PERFORMED: Fiberoptic bronchoscopy with: 1. Visual airway inspection. 2. Endobronchial brush of the left upper lobe. 3. Bronchoalveolar alveolar lavage of the left upper lobe. 4. Transbronchial biopsies of the left upper lobe. 5. Endoscopic bronchial ultrasound-guided transbronchial needle aspiration of station 4, just anterior to the distal trachea. PREPROCEDURE DIAGNOSES: 1. Pulmonary cavity. 2. Mediastinal lymph node. POSTPROCEDURE DIAGNOSES: 1. Pulmonary cavity. 2. Mediastinal lymph node. ANESTHESIA: General. PREANESTHESIA ASSESSMENT: H and P had been performed. The patient's medications and allergies were reviewed. Informed consent was obtained after discussing the risks, benefits, and rationale for performing the procedure as well as alternative sampling options. DESCRIPTION OF PROCEDURE: A time-out was performed identifying the correct procedure and patient with name and date of . A diagnostic fiberoptic bronchoscope was introduced through the 8.0 endotracheal tube. The bronchoscope was advanced into the trachea, where tracheobronchial tree inspection was carried out with clear identification of the right upper lobe, right middle lobe, right lower lobe, left upper lobe, lingula, and left lower lobe. Anatomy was normal to the segmental level. Endobronchial brushing was obtained from the apical posterior segment of the left upper lobe under fluoroscopy. I was able to get and what I believe was in the cavity. BAL was performed from the left upper lobe, apical posterior segment. Lastly, endobronchial biopsies were obtained from the same site. Hemostasis was verified and this bronchoscope was removed from the patient and exchanged for a curvilinear endoscopic bronchial ultrasound scope. This EBUS scope did a keke survey. The only lymph node that was identified was just anterior to the distal trachea. It had a benign triangular appearance to it. Final aspiration of the lymph node was performed. There was no significant bleeding post biopsy. The patient had stable vitals throughout the entire procedure without significant desaturation. FINDINGS: 1. The angélica appeared very sharp. 2. Rapid on-site demonstrated benign lymph node with no obvious malignant cells present. 3. No endobronchial disease was identified. 4. Secretions were minimal. SPECIMENS OBTAINED: 1. FNA of level 4 lymph node, anterior to distal trachea. 2. Pathology on BAL, brush, and transbronchial biopsies. 3. Microbiology on BAL. COMPLICATIONS: None. ESTIMATED BLOOD LOSS: 5 mL. FLUOROSCOPY TIME: 3 minutes. DISPOSITION: The patient will recover in the postanesthesia care unit and transition back to her floor bed when she meets criteria. Job ID: [id number]
[2019-07-17] MEDS: Ferrous Sulfate 325 MG TAB PO SCH ×2 (08:48→17:45)
[2019-07-17] MEDS: Aspirin 81 mg Enteric Coated Tablet PO SCH (08:48)
[2019-07-17] MEDS: Famotidine/PF 20 mg/2ml Vial SLOW IVP SCH (08:48)
[2019-07-17] MEDS: Enoxaparin Sodium 40 MG/0.4 ML SYRINGE SC SCH (08:49)
[2019-07-17] MEDS: methylPREDNISolone Sod Succ 40 MG VIAL IVP SCH (08:49)
[2019-07-17] MEDS: Benzonatate 100 MG CAP PO PRN ×2 (12:42→20:42)
--- NOTE | 2019-07-17 16:36 | PRG ---
DATE OF SERVICE: 07/17/2019 SERVICE: Pulmonary Medicine. INTERVAL HISTORY: The patient is doing great from respiratory standpoint. She has a little hemoptysis, which is appropriate. It seems to be clearing. She did not have any overnight events or fevers. She denies any nausea, vomiting, or diarrhea. We talked about the results of the pathology. She understands that she has a cancer. This is a lung cancer. She also understands that she will need to be following up with Oncology in the outpatient setting and appointment will be provided to her before she leaves the hospital. We are awaiting final pathology from the transbronchial biopsies where the cytology clearly had cancer cells there. Hopefully, I was able to get a chunk of a piece of the cavity. There is a possibility that additional sampling procedures will be required in the near future. PHYSICAL EXAMINATION: VITAL SIGNS: Afebrile, pulse 86, blood pressure 116/70, respirations are 18, and saturation 96% on room air. GENERAL: The patient is awake and alert, in no apparent distress. LUNGS: Decent air entry with no prolonged expiratory phase or wheezing. HEART: Normal rate, regular. ABDOMEN: Soft, nontender, and nondistended. Bowel sounds are positive. MUSCULOSKELETAL: No cyanosis or clubbing. No pitting in the bilateral lower extremities. NEUROLOGIC: Grossly nonfocal. LABORATORIES: Differential on the BAL cell count was primarily non-hematologic cells. AFB smear is unremarkable. Cultures negative to date. The cytology FNA on level 4 lymph node was negative. The brushings and washings both had malignant cells present. It was consistent with a non-small cell lung cancer. Transbronchial biopsies are currently pending. ASSESSMENT: 1. Chronic obstructive pulmonary disease with acute exacerbation. 2. Non-small cell lung cancer. 3. Recent history of influenza. 4. Mediastinal lymph node is benign. DISCUSSION AND PLAN: The patient is doing fine from respiratory standpoint. At this point, she can be discharged from the hospital. She preferred to stay one additional day and head out in the morning, which is reasonable. I will have her see me in clinic in 2 to 3 weeks in the outpatient setting. That being said, I believe she will be meeting with Oncology early next week. In the outpatient setting, we will consider her for long-acting nebulized therapy. Job ID: [id number]
--- NOTE | 2019-07-17 18:12 | PDOC.HOSPP ---
- Subjective Subjective: Seen and examined this a.m. She is having some blood-tinged sputum, which I told her is expected after bronchoscopy. Patient is breathing comfortably on room air. She denies chest pain or shortness of breath. She is having some cough , my have started a cough aid for this. Unfortunately pathology report is suggestive of non-small cell lung cancer. She is going to follow up with oncology in the outpatient setting in the near future. - Objective Vital Signs & Weight: Vital Signs (12 hours) Temp Pulse Resp BP Pulse Ox 07/17/19 14:15 86 16 94 L 07/17/19 08:35 98.1 F 86 18 116/70 96 07/17/19 08:00 96 07/17/19 07:08 90 16 96 Weight Admit Weight 72 lb 9.6 oz Weight 79 lb 9 oz Most Recent Monitor Data Heart Rate from ECG 72 NIBP 93/61 NIBP BP-Mean 71 Respiration from ECG 17 SpO2 96 I&O: 07/16/19 07/17/19 07/18/19 06:59 06:59 06:59 Intake Total 670 2500 Balance 670 2500 Result Diagrams: 07/13/19 04:22 07/13/19 04:22 Radiology Reviewed by me: Yes Hospitalist ROS - Review of Systems All other systems reviewed; all pertinent +/- noted in HPI/Subj - Medication Medications: Active Medications Generic Name Dose Route Start Last Admin Trade Name Freq PRN Reason Stop Dose Admin Albuterol/Ipratropium 3 ml 07/12/19 07:00 07/17/19 14:15 Duoneb NEB 3 ml [id number] RIMA Administration Aspirin 81 mg 07/15/19 09:00 07/17/19 08:48 Ecotrin PO 81 mg DAILY RIMA Administration Benzonatate 100 mg 07/17/19 10:13 07/17/19 12:42 Tessalon PO 100 mg Q4H PRN Administration Cough Enoxaparin Sodium 40 mg 07/12/19 09:00 07/17/19 08:49 Lovenox SC Not Given 0900 RIMA Famotidine 20 mg 07/12/19 09:00 07/17/19 08:48 Pepcid SLOW IVP 20 mg Q12HR RIMA Administration Ferrous Sulfate 325 mg 07/15/19 08:00 07/17/19 17:45 Feosol PO 325 mg BID-WM RIMA Administration Doxycycline Hyclate 100 mg/ 100 mls @ 100 mls/hr 07/12/19 09:00 07/17/19 08: 48 Sodium Chloride IVPB 100 mls Q12HR RIMA Administration Methylprednisolone Sodium Succinate 40 mg 07/12/19 09:00 07/17/19 08:49 Solu-Medrol IVP 40 mg DAILY RIMA Administration - Exam General Appearance: NAD Eye: anicteric sclera ENT: normocephalic atraumatic, moist mucosa Neck: supple, symmetric, no lymphadenopathy Heart: no murmur, no gallops, no rubs Respiratory: CTAB, no rales, no ronchi, wheezes (few scattered) Gastrointestinal: soft, non-tender, no guarding, no rigidity Extremities: no edema Skin: no lesions, no rashes Neurological: cranial nerve grossly intact Musculoskeletal: diffuse muscle atrophy Psychiatric: normal behavior, A&O x 3 Hosp A/P (1) COPD exacerbation Code(s): J44.1 - CHRONIC OBSTRUCTIVE PULMONARY DISEASE W (ACUTE) EXACERBATION Status: Acute (2) Acute respiratory failure Code(s): J96.00 - ACUTE RESPIRATORY FAILURE, UNSP W HYPOXIA OR HYPERCAPNIA Status: Acute (3) Cough Code(s): R05 - COUGH Status: Acute (4) Pleuritic chest pain Code(s): R07.81 - PLEURODYNIA Status: Acute (5) Pulmonary lesion Code(s): J98.4 - OTHER DISORDERS OF LUNG Status: Acute (6) Severe protein-calorie malnutrition Code(s): E43 - UNSPECIFIED SEVERE PROTEIN-CALORIE MALNUTRITION Status: Acute (7) NSTEMI, initial episode of care Code(s): I21.4 - NON-ST ELEVATION (NSTEMI) MYOCARDIAL INFARCTION Status: Acute - Plan Plan: Medical unit Pulmonology consultation, recommendations appreciated Oncology consultation, recommendations appreciated Bronchoscopy on 07/16/2019 - Pathology of Non-small cell lung CA. pulmonary lesion, tissue sample would be needed for definitive diagnosis and treatment pulmonary specific antibiotics steroids No longer needing supplemental oxygen to maintain O2 saturation greater than 88% breathing treatments Iron studies to eval for anemia of chronic disease vs Iron deficiency Protein supplementation TID after meals Severe protein calorie malnutrition diagnosed on admission Type 2 NSTEMI diagnosed on admission ASA 81mg started Statin Recent Flu, completed full course of antiviral therapy now with secondary COPD exacerbation smoking cessation recently Continue home medications as able Blood pressure control blood sugar control G.I. prophylaxis
[2019-07-17] MEDS: Doxycycline 100 MG CAP PO SCH (20:42)
[2019-07-18] MEDS: Benzonatate 100 MG CAP PO PRN (02:01)
[2019-07-18 06:11] LABS: QuantiFERON-TB Gold Plus Negative (Negative)
[2019-07-18 07:50] VITALS: BP 98/64; TEMP 98.3
[2019-07-18] MEDS: Ferrous Sulfate 325 MG TAB PO SCH (08:16)
[2019-07-18] MEDS: Doxycycline 100 MG CAP PO SCH (08:16)
[2019-07-18] MEDS: Aspirin 81 mg Enteric Coated Tablet PO SCH (08:16)
[2019-07-18] MEDS: Enoxaparin Sodium 40 MG/0.4 ML SYRINGE SC SCH (08:16)
[2019-07-18] MEDS ORDERED: methylPREDNISolone 4 mg Tablet PO SCH (09:00)
--- NOTE | 2019-07-18 10:32 | PDOC.MOPN ---
Interval History: No complaints, home today. - Vital Signs Vital Signs: Vital Signs (12 hours) Temp Pulse Resp BP Pulse Ox 07/18/19 10:28 87 16 96 07/18/19 08:00 96 07/18/19 07:49 98.3 F 75 20 98/64 96 07/18/19 06:50 75 16 100 Weight Admit Weight 72 lb 9.6 oz Weight 79 lb 9 oz Most Recent Monitor Data Heart Rate from ECG 72 NIBP 93/61 NIBP BP-Mean 71 Respiration from ECG 17 SpO2 96 - Physical Exam General: Alert, Oriented x3, No acute distress HEENT: Atraumatic, PERRLA, EOMI, Mucous membr. moist/pink Lungs: Other Abdomen: Normal bowel sounds, Soft, No tenderness, No hepatospenomegaly, No masses Extremities: No clubbing, No cyanosis, No edema, Normal pulses, No tenderness/ swelling Skin: No rashes, No breakdown, No significant lesion Neurological: Normal gait, Normal speech, Strength at 5/5 X4 ext, Normal tone, Sensation intact, Cranial nerves 3-12 NL, Reflexes 2+ - Labs Result Diagrams: 07/13/19 04:22 07/13/19 04:22 Lab results: Laboratory Results - last 24 hr 07/14/19 07:39: TB Test (QFT) Nil 0.10, TB Test (QFT) Mitogen >10.00, TB Test Ag - Nil 1 0.14, TB Test Ag - Nil 2 0.12, TB Test (QFT) Negative, TB Test (QFT) Interp Status: lab reviewed by me A/P - Problem (1) Pulmonary lesion Current Visit: Yes Code(s): J98.4 - OTHER DISORDERS OF LUNG Status: Acute (2) Non-small cell lung cancer Current Visit: Yes Code(s): C34.90 - MALIGNANT NEOPLASM OF UNSP PART OF UNSP BRONCHUS OR LUNG Status: Acute - Plan Plan: home today follow-up next week with Dr. Aguilar
--- NOTE | 2019-07-18 21:19 | DIS ---
DATE OF ADMISSION: 07/12/2019 DATE OF DISCHARGE: 07/18/2019 REASON FOR HOSPITALIZATION: Shortness of breath. SIGNIFICANT FINDINGS: The patient was found to have acute COPD exacerbation in addition to lung lesion, which was later identified to be [id number] lung cancer after bronchoscopy. PROCEDURES PERFORMED AND TREATMENTS RENDERED: The patient was admitted to the intermediate medical care floor for close management. The patient was seen and evaluated by Pulmonology-please see full consultation notes and progress notes for details. The patient was placed on pulmonary specific antibiotics, IV steroids, breathing treatments, and supplemental oxygen. With maximum medical therapy, the patient did improve daily. The patient was successfully weaned off oxygen therapy. The patient was identified to have lung lesion on CT scan from outside facility-please see full report for details. Pulmonology recommending bronchoscopy for further evaluation on pulmonary lesion. The patient underwent a bronchoscopy on 07/16/2019-please see full operative report for details. The procedure was successful and there were no immediate intraoperative or postoperative complications. Biopsy results did demonstrate [id number] carcinoma and was positive for malignant cells. Please see full pathology reports for details. The patient was seen and evaluated by Oncology - please see full consultation notes and progress notes for details. The patient was recommended safe for discharge by all specialists on 07/18/2019, with close followup in the outpatient setting. The patient will follow up with Oncology in the next 1 to 2 weeks for further plan of care. CONDITION ON DISCHARGE: Stable. SPECIFIC INSTRUCTIONS FOR THE PATIENT: 1. The patient is recommended to take all medications as directed. 2. The patient is recommended to follow up with primary care physician in the next 5 to 7 days. 3. The patient is recommended to follow up with Oncology in the next 1 to 2 weeks. 4. The patient is recommended to follow up with Pulmonology in the next 1 to 2 weeks. 5. The patient is recommended to return to acute care hospital immediately if signs or symptoms return, worsen, or any other new symptoms occur. DISCHARGE MEDICATIONS: 1. Medrol Dosepak-use as directed. 2. DuoNeb therapy q.4 hours p.r.n. shortness of breath. 3. Ferrous sulfate 325 mg p.o. b.i.d. 4. Doxycycline 100 mg p.o. b.i.d., for an additional 2 days-4 tablets given. 5. Tessalon Perles 100 mg p.o. q.4 hours p.r.n. cough. 6. Aspirin 81 mg one tablet p.o. daily. 7. ProAir HFA two puffs p.o. q.4 hours p.r.n. shortness of breath. 8. Tylenol regular strength 650 mg p.o. q.4 hours p.r.n. pain or fever. TIME SPENT: Greater than 38 minutes spent coordinating care and discharge process for this patient. Job ID: [id number]
[2019-07-20 08:11] LABS: Fungus Stain Final report (.)
== END 2019-07-18 11:53 | disposition home or self-care (01) | DRG 166 ==
LOC: ERS 00:03 → IMCU/EMU 03:11 → T4-A 07-13 13:40
PROVIDERS: ADMIT Internal Medicine; ATTEND Internal Medicine
PROC: 0BBG8ZX Excision of Left Upper Lung Lobe, Via Natural or Artificial Opening Endoscopic, Diagnostic (ICD-10-PCS; principal; 2019-07-16)
PROC: 0BD88ZX Extraction of Left Upper Lobe Bronchus, Via Natural or Artificial Opening Endoscopic, Diagnostic (ICD-10-PCS; 2019-07-16)
PROC: 0B9G8ZX Drainage of Left Upper Lung Lobe, Via Natural or Artificial Opening Endoscopic, Diagnostic (ICD-10-PCS; 2019-07-16)
PROC: 07D74ZX Extraction of Thorax Lymphatic, Percutaneous Endoscopic Approach, Diagnostic (ICD-10-PCS; 2019-07-16)
DX: C34.92 Malignant neoplasm of unspecified part of left bronchus or lung (principal); E43 Unspecified severe protein-calorie malnutrition; I21.A1 Myocardial infarction type 2; J96.00 Acute respiratory failure, unspecified whether with hypoxia or hypercapnia; J44.1 Chronic obstructive pulmonary disease with (acute) exacerbation; Z68.1 Body mass index [BMI] 19.9 or less, adult; Z87.891 Personal history of nicotine dependence; Z88.5 Allergy status to narcotic agent; Z79.899 Other long term (current) drug therapy; Z79.51 Long term (current) use of inhaled steroids; Z28.82 Immunization not carried out because of caregiver refusal
CPT/HCPCS: 36415; 51701; 76000; 80048; 80053; 80061; 81003; 82330; 82553; 82728; 82803; 83540; 83550; 83605; 83880; 84484; 85025; 85060; 86480; 87040; 87070; 87086; 87102; 87116; 87205; 87206; 88112; 88172; 88173; 88177; 88305; 88312; 88313; 88341; 88342; 89051; 93005; 93306; 94640; 94660; 94760; 96365; 96366; 96375; A4353; J0456; J1100; J1200; J1650; J2405; J2704; J2920; J3010; J3490; J7509; J7620; S0028

== ENCOUNTER 2019-07-30 07:57 | Outpatient (CLI) | payer MEDICAID ==
--- NOTE | 2019-07-30 09:34 | CT ---
CT OF THE CHEST WITH IV CONTRAST INDICATION: Left lung mass COMPARISON: Chest radiograph dated April 24, 2019 and January 26, 2015 FINDINGS: CHEST: Lungs: There is a large left suprahilar mass that is centrally necrotic measuring 5.0 x 8.3 x 9.1 cm in its greatest AP, mediolateral and craniocaudad dimensions. There is surrounding postobstructive consolidation involving the apical posterior segment of the left upper lobe. The mass is superimposed on severe scattered centrilobular and paraseptal emphysema. Pleural space: No effusion. Mediastinum: No pathologically enlarged lymph nodes are evident. Upper abdomen:There is a very tiny suspected cysts involving the right hepatic dome. Small area of zapata spected focal fatty seen near the falciform ligament. Adrenal glands are normal appearing Osseous structures: No acute osseous abnormality. No destructive osteolytic or osteoblastic lesion i s identified. There is scattered degenerative and osteoarthritic changes. Soft tissues:Normal. IMPRESSION: 1. Large left suprahilar mass with central necrosis and surrounding postobstructive atelectasis and/o r consolidation consistent with malignancy. 2. Severe emphysema.
--- NOTE | 2019-07-30 10:01 | MRI ---
MRI BRAIN WITH AND WITHOUT CONTRAST: DATE: 07/29/2019. HISTORY: A 59-year-old female with lung cancer, ICD-10: C34.12, malignant neoplasm of upper lobe, left bronch us or lung. Evaluate for brain metastasis. TECHNIQUE: Multiple sequences obtained in axial, sagittal, and coronal planes; pre and post IV injection of gado linium-based contrast agent: 8 mL MultiHance. FINDINGS: The ventricles are normal in size and configuration. There is no restricted diffusion, abnormal intr aaxial enhancement, mass, midline shift or any other mass effect, recent intraaxial hemorrhage, or ex traaxial fluid collection. There is a moderate degree of T2-hyperintensities in the cerebral white ma tter consistent with chronic ischemic white matter changes due to microvascular atherosclerosis. IMPRESSION: 1. Moderate chronic ischemic white matter changes. 2. Otherwise negative. jn[] POS: CET
[2019-07-30] MEDS ORDERED: Iopamidol 370 76% 100 ML VIAL ONE (15:12)
[2019-07-30] MEDS ORDERED: Magnevist 469MG/ML 20 ML VIAL ONE (15:30)
== END 2019-07-30 07:58 | disposition home or self-care (01) ==
LOC: CT 07:57
PROVIDERS: ATTEND Family Medicine
DX: C34.12 Malignant neoplasm of upper lobe, left bronchus or lung (principal); R91.8 Other nonspecific abnormal finding of lung field; J43.9 Emphysema, unspecified; J85.0 Gangrene and necrosis of lung
CPT/HCPCS: 70553; 71260

== ENCOUNTER 2019-08-01 08:24 | Outpatient (CLI) | payer MEDICAID ==
--- NOTE | 2019-08-01 10:39 | PET ---
Radionucleotide PET scan with CT attenuation correction HISTORY: Left upper lobe lung cancer. Initial staging. FINDINGS: Physiologic uptake of radiotracer throughout the enteric system and along each urinary trac t. Involving much of the left upper lobe is a large irregular, somewhat ill-defined area of hypermetabo lic activity. Maximum SUV 17.4. A portion of this increased uptake surrounds the air-fluid level and large area of necrosis. No abnormal uptake is apparent within the mediastinal lymph nodes separate from the lesion. No abnormal uptake at the level of the adrenal glands. At the level of the lower sigmoid colon, a focal area of markedly increased radiotracer uptake shows a maximum SUV of 9.0. This is significantly greater than the other bowel uptake throughout the abdomen/pelvis. Nondiagnostic CT attenuation correction images also show calcification within the arterial structures . IMPRESSION: Extensive hypermetabolic activity associated with the left upper lobe neoplasm and area o f necrosis. No hypermetabolic mediastinal adenopathy. Focal hypermetabolic abnormality at the level of the lower sigmoid colon should definitely be further evaluated, possibly a second primary lesion. Please consider endoscopic evaluation. Atherosclerosis.
== END 2019-08-01 08:25 | disposition home or self-care (01) ==
LOC: PET 08:24
PROVIDERS: ATTEND Internal Medicine Hematology & Oncology
DX: C34.12 Malignant neoplasm of upper lobe, left bronchus or lung (principal); I70.0 Atherosclerosis of aorta; R93.3 Abnormal findings on diagnostic imaging of other parts of digestive tract
CPT/HCPCS: 78815; A9552

== ENCOUNTER 2019-08-29 12:34 | Outpatient (CLI) | payer BC ==
--- NOTE | 2019-08-29 15:22 | RAD ---
PA AND LATERAL CHEST: 08/29/19 HISTORY: Shortness of breath and lung cancer. COMPARISON: Chest x-ray of 04/24/[address] of the chest of 07/30/19. Heart size is within normal limits. COPD changes are noted. The left hilar mass is obscured by a mass and parenchymal change. The changes in the left upper lobe are improved as compared to the prior CT study. IMPRESSION: 1. Left suprahilar lung mass. The associated postobstructive lung changes are still present but less pronounced than on the prior examination. 2. COPD changes. POS: TPC
--- NOTE | 2019-08-29 15:54 | NM ---
NUCLEAR MEDICINE VENTILATION PERFUSION SCAN: 08/29/19 HISTORY: Shortness of breath. COMPARISON: Chest x-ray done earlier today as well as 07/30/19 CT study. Ventilation portion of the study using 6.6 millicuries of Xenon 133 gas in the anterior and posterio r projections. 6 millicuries of 99m technetium MAA were administered for the perfusion study. The ventilation study shows diminished ventilation and the upper lobes with matched perfusion abnorma lities. Changes on the left can be explained by the lung mass and post obstructive change and on the right side very severe emphysematous changes are noted on the CT examination. Essentially no vascular ity in the upper lobe. Tiny subsignal defect seen in the lower lobes. IMPRESSION: Matched ventilation and perfusion defects in both upper lobes which I feel can be explained on the ba sis of marked COPD changes as discussed above and post obstructive change. Overall, I would favor th is as a low probability of pulmonary embolus. POS: TPC
== END 2019-08-29 12:35 | disposition home or self-care (01) ==
LOC: ULT 12:34
DX: C34.12 Malignant neoplasm of upper lobe, left bronchus or lung (principal); R91.8 Other nonspecific abnormal finding of lung field; I08.1 Rheumatic disorders of both mitral and tricuspid valves; Z87.891 Personal history of nicotine dependence
CPT/HCPCS: 71046; 78582; 93306; A9540; A9558

== ENCOUNTER 2019-10-01 07:46 | Day surgery (SDC) | payer BC ==
[2019-09-30 12:44] VITALS: BMI 17.1
[2019-10-01] MEDS ORDERED: Acetaminophen 500 MG TAB ONE (08:05)
[2019-10-01] MEDS ORDERED: Ketorolac Tromethamine 30 MG/ML VIAL ONE (08:05)
[2019-10-01 08:48] LABS: #Eosinphils 0.1 thou/uL (0.0-0.7); #Lymphocytes 1.5 thou/uL (1.20-3.40); #Monocytes 0.6 thou/uL (0.11-0.59); #Neutrophils 4.3 thou/uL (1.40-6.50); %Basophils 0.4 % (0.0-1.0); %Lymphocytes 23.1 % (21.0-51.0); %Monocytes 8.5 % (0.0-10.0); Hemoglobin 10.7 g/dL (12.0-16.0); Mean Corpuscular Hemoglobin 27.4 pg (27.0-31.0); Platelet Count 568 thou/uL (130-400); RBC Distribution Width 17.1 % (11.5-14.5); White Blood Cell (WBC) Count 6.5 thou/uL (4.8-10.8)
[2019-10-01 09:03] LABS: Anion Gap 16 mmol/L (10-20); BUN (Urea Nitrogen) 10 mg/dL (9.8-20.1); Calc. Creatinine Clearance 57 mL/min (70-130); Carbon Dioxide 26 mmol/L (23-31); Chloride 99 mmol/L (98-107); Estimated GFR-MDRD Greater than 90; Glucose 98 mg/dL (80-115); Potassium 3.9 mmol/L (3.5-5.1); Sodium 137 mmol/L (136-145)
[2019-10-01] MEDS ORDERED: Lidocaine 1% PF 5 ML VIAL ONE (09:32)
[2019-10-01] MEDS ORDERED: PROPOFOL 200 MG/20 ML VIAL ONE (09:32)
[2019-10-01] MEDS ORDERED: PHENYLEPHRINE-NS 100 MCG/ML 10 ML SYRINGE ONE (09:32)
[2019-10-01] MEDS ORDERED: Fentanyl 100 MCG/2 ML VIAL ONE (10:02)
[2019-10-01] MEDS ORDERED: Propofol 500 MG/50 ML VIAL ONE (10:02)
[2019-10-01] MEDS ORDERED: Lidocaine 2% PF 5 ML VIAL ONE (10:02)
[2019-10-01] MEDS ORDERED: Lidocaine 1% w/Epinephrine 1:100K 20 ML VIAL ONE (10:05)
[2019-10-01] MEDS ORDERED: Bupivacaine 0.25% HCL 30 ML VIAL ONE (10:05)
--- NOTE | 2019-10-01 11:24 | RAD ---
Exam: Chest one view HISTORY:Status post Mediport catheter. Lung cancer Comparison: 08/29/2019 FINDINGS: Cardiac silhouette: Normal Aorta: Unremarkable Pulmonary vessels: Normal Costophrenic angles: Clear Lines and tubes: Right-sided Mediport catheter with the distal tip projecting over the expected regio n of the superior vena cava. LUNGS: Postsurgical changes compatible with a left upper lobe resection. Compensatory hyperinflation of the right lung. Pneumothorax: None Osseous abnormalities: Surgical resection of multiple left ribs. IMPRESSION: 1. Post surgical changes compatible with a left upper lobe resection. Associated diminished lung volu mes in the left lung with compensatory hyperinflation of the right lung. 2. Right-sided Mediport catheter. No pneumothorax.
--- NOTE | 2019-10-02 12:53 | OP ---
DATE OF PROCEDURE: 10/01/2019 PREOPERATIVE DIAGNOSIS: Left lung cancer, status post thoracotomy. POSTOPERATIVE DIAGNOSIS: Left lung cancer, status post thoracotomy. PROCEDURE PERFORMED: Placement of right subclavian low-profile power compatible MediPort. ANESTHESIA: Total intravenous anesthesia with local using a mixture of Marcaine and lidocaine with epinephrine. INDICATIONS: The patient is a 59-year-old white female. She was recently diagnosed with a large left lung cancer, for which she has undergone surgery. She requires adjuvant chemotherapy and MediPort is requested for chemotherapy administration. She is an extraordinarily thin woman, and I have spoken with her regarding the potential increased risks of this procedure for her. DESCRIPTION OF OPERATION: Informed consent was obtained. The patient was taken to the operating room where total intravenous anesthesia was obtained with the patient in supine position. Left periclavicular area was prepped with ChloraPrep and draped in sterile fashion. Local anesthetic was infiltrated and a large-gauge needle was passed under the clavicle in the subclavian vein. Guidewire was passed through the needle and fluoroscopically confirmed to enter the superior vena cava. Additional local anesthetic was infiltrated and transverse incision was created based on needle insertion site. A subcutaneous pocket was dissected inferiorly. Introducer dilator was passed over the guidewire under fluoroscopic guidance. The guidewire and dilator were removed, and the catheter was passed through the introducer. The tip of the catheter was positioned at the atriocaval junction and the catheter was trimmed to the appropriate length and secured to the locking hub of the MediPort. The port was then placed in the subcutaneous pocket where it was secured to the pectoral fascia with 2 interrupted sutures of 3-0 Prolene. The incision was then closed in layers with 3-0 and 4-0 Monocryl. Additional local anesthetic was infiltrated. The port was cannulated with a Strange needle and it aspirated blood freely and was flushed with heparinized saline. Dermabond was placed externally on the skin incision. There were no complications. Blood loss was negligible. The patient tolerated the procedure well and was taken to recovery room in stable condition. FINDINGS: I chose a low-profile port secondary to her body habitus. The port was placed uneventfully with no significant blood loss. Currently, no complications. Fluoroscopy was used throughout the procedure. The patient tolerated the procedure well and was taken to recovery room in stable condition. Job ID: [id number]
== END 2019-10-01 12:00 | disposition home or self-care (01) ==
LOC: SDC 07:46
PROVIDERS: ATTEND Specialist
PROC: 02HV33Z Insertion of Infusion Device into Superior Vena Cava, Percutaneous Approach (ICD-10-PCS; principal; 2019-10-01)
PROC: 0JH60WZ Insertion of Totally Implantable Vascular Access Device into Chest Subcutaneous Tissue and Fascia, Open Approach (ICD-10-PCS; principal; 2019-10-01)
DX: C34.12 Malignant neoplasm of upper lobe, left bronchus or lung (principal); Z79.82 Long term (current) use of aspirin; Z79.899 Other long term (current) drug therapy; Z87.891 Personal history of nicotine dependence; Z88.5 Allergy status to narcotic agent
CPT/HCPCS: 71045; 80048; 85025; C1788; J0690; J1642; J1885; J2001; J2704; J3010; S0020

== ENCOUNTER 2020-06-11 11:07 | Outpatient (CLI) | payer BC ==
--- NOTE | 2020-06-11 13:42 | PET ---
Exam: PET scan with CT attenuation correction COMPARISON: 08/01/2019 Correlation: CT angiogram report 05/21/2020 TECHNIQUE: PET scan with CT attenuation correction was performed from the base of the brain to the pr oximal thighs following the intravenous administration of 12.1 L of [id number] FINDINGS: Head and neck: No abnormal FDG localization CHEST: CT used for attenuation correction demonstrates postsurgical changes compatible with partial r esection of the left upper lobe. There is significant FDG avidity along the periphery of the residual left upper lobe including the left lung apex. Maximum SUV ranges between 12.9 along the apex , 10.6 on the posterior margin and 8.6 along the inferior margin. There is a focus of FDG avidity involving the superior segment of the left lower lobe, perihilar location. Maximum SUV is 10.3. There is a second hypermetabolic focus measuring 0.6 cm with a maximum SUV of 1.6. Size limits evaluation. There is compensatory hyperinflation of the right lung. There is a hypermetabolic nodule in the right lower lobe with a maximum SUV of 1.6. Note, there is misregistration due to motion. Correlation made with the previous PET scan demonstrates interval development of the nodule, suggesti ng interval metastases. Nodule measures 0.6 cm. There is a second new nodule in the anterior aspect of the right lower lobe which also has FDG avidity with a maximum SUV of 1.8. Again, there appears to be misregistration due to motion. This nodule measures 0.9 cm. Abdomen and pelvis: No abnormal FDG localization. Grossly noted FDG avidity in the lower sigmoid colo n is not appreciated. Osseous structures: CT used for attenuation correction demonstrates destructive changes involving the posterior left second, third, fourth, fifth, sixth, seventh, eighth ribs. There are erosive changes involving the left T4, T5, T6 vertebral bodies. As mentioned above, the left apical soft tiss ue mass has markedly FDG avidity in this region. IMPRESSION: 1. Evidence of progression of disease. There is a large soft tissue density with markedly peripheral FDG avidity involving the left upper thorax. 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 There is also involvement of the upper thoracic spine from T4 through T 6. 2. Evidence of multiple lung parenchymal nodules which are less than 1 cm in size, favoring metastase s. Additionally there is a large hypermetabolic focus in the superior segment of the left lower lobe worrisome for metastases. This lesion is perihilar in location.
[2020-06-11] MEDS ORDERED: Magnevist 469MG/ML 20 ML VIAL ONE (13:55)
--- NOTE | 2020-06-11 13:57 | MRI ---
MRI BRAIN WITH AND WITHOUT CONTRAST: DATE: 06/11/2020 HISTORY: 60-year-old female with malignant neoplasm upper lobe or bronchus left lung C 34.12. Restaging. COMPARISON: 07/30/2019 TECHNIQUE: Multiplanar, multisequence MRI of the brain obtained pre and post IV injection of gadolinium based co ntrast agent. FINDINGS: There is no obstructive hydrocephalus. There is no midline shift or any other evidence of mass effect . There is no extra-axial fluid collection. There is a moderate degree of T2-hyperintensities in the cerebral white matter consistent with chronic ischemic white matter changes due to microvascular atherosclerosis. There is no abnormal enhancement, mass, recent hemorrhage, or restricted diffusion. There has been no interval change. IMPRESSION: 1) moderate chronic ischemic white matter changes. 2) otherwise negative
== END 2020-06-11 11:08 | disposition home or self-care (01) ==
LOC: PET 11:07
PROVIDERS: ATTEND Internal Medicine Hematology & Oncology
DX: C34.12 Malignant neoplasm of upper lobe, left bronchus or lung (principal); D50.0 Iron deficiency anemia secondary to blood loss (chronic); C79.51 Secondary malignant neoplasm of bone; M79.89 Other specified soft tissue disorders; R91.8 Other nonspecific abnormal finding of lung field
CPT/HCPCS: 70553; 78815; A9552; A9579